=== PATIENT | female | born 1990 | race Hispanic/Latino ===

== ENCOUNTER 2022-10-16 12:30 | Observation (INO) | payer MEDICAID, OTHER ==
[~2022-10-16] VITALS: Ht 167.6 cm; Wt 83.9 kg
[2022-10-16 12:49] VITALS: BP 125/79
[2022-10-16 13:29] LABS: APPEARANCE,URINE CLEAR (CLEAR); BILIRUBIN,URINE NEGATIVE (NEGATIVE); COLOR,URINE LIGHT-YELLOW (YELLOW); GLUCOSE, URINE (UA) NEGATIVE (NEGATIVE); KETONES,URINE 40 mg/dL (NEGATIVE); LEUKOCYTE ESTERASE ,URINE NEGATIVE Leu/uL (NEGATIVE); NITRATE,URINE NEGATIVE (NEGATIVE); OCCULT BLOOD,URINE NEGATIVE (NEGATIVE); PROTEIN,URINE NEGATIVE (NEGATIVE); UROBILINOGEN,URINE 0.2 mg/dL (0.2-1.0)
[2022-10-16 13:30] LABS: AMPHET/METH SCREEN,URINE NEGATIVE (NEGATIVE); BARBITURATE SCREEN, URINE NEGATIVE (NEGATIVE); BENZODIAZEPINES SCREEN,URINE NEGATIVE (NEGATIVE); CANNABINOID SCREEN,URINE NEGATIVE (NEGATIVE); COCAINE SCREEN,URINE NEGATIVE (NEGATIVE); OPIATE SCREEN,URINE NEGATIVE (NEGATIVE); PHENCYCLIDINE SCREEN,URINE NEGATIVE (NEGATIVE)
[2022-10-16 13:41] LABS: BACTERIA,URINE FEW /HPF (None Seen); MUCUS,URINE RARE LPF (None Seen); RBC,URINE 0-1 /HPF (0-1); SQUAMOUS EPITHELIAL CELL,UR MOD /HPF (0-2); WBC,URINE 0-1 /HPF (0-1)
[2022-10-16] MEDS ORDERED: LACTATED RINGERS 1000ML 1,000 ML IV SCH (14:00)
== END 2022-10-16 15:05 | disposition home or self-care (01) ==
LOC: EDH 12:30 → LDH 12:31
PROVIDERS: ADMIT Obstetrics & Gynecology; ATTEND Obstetrics & Gynecology
DX: O26.893 Other specified pregnancy related conditions, third trimester (principal); R42 Dizziness and giddiness; G43.909 Migraine, unspecified, not intractable, without status migrainosus; R20.2 Paresthesia of skin; Z3A.31 31 weeks gestation of pregnancy; Z79.899 Other long term (current) drug therapy
CPT/HCPCS: 59025; 96360; 80305; 81003; 81001; G0378 ×2; G0379; J7120

== ENCOUNTER 2022-11-19 20:13 | Observation (INO) | payer MEDICAID ==
[~2022-11-19] VITALS: Ht 167.6 cm; Wt 86.2 kg
[2022-11-19 20:22] VITALS: BP 129/70
[2022-11-19 21:01] LABS: APPEARANCE,URINE CLEAR (CLEAR); BILIRUBIN,URINE NEGATIVE (NEGATIVE); COLOR,URINE COLORLESS (YELLOW); GLUCOSE, URINE (UA) NEGATIVE (NEGATIVE); KETONES,URINE 40 mg/dL (NEGATIVE); LEUKOCYTE ESTERASE ,URINE NEGATIVE Leu/uL (NEGATIVE); NITRATE,URINE NEGATIVE (NEGATIVE); OCCULT BLOOD,URINE NEGATIVE (NEGATIVE); PH,URINE 6.5 (5.0-8.0); PROTEIN,URINE NEGATIVE (NEGATIVE); UROBILINOGEN,URINE 0.2 mg/dL (0.2-1.0)
[2022-11-19] MEDS ORDERED: LACTATED RINGERS 1000ML IV SCH (21:30)
[2022-11-19] MEDS ORDERED: TERBUTALINE SULFATE VIAL 1MG/ML SQ PRN (21:30)
[2022-11-19] MEDS ORDERED: LACTATED RINGERS 1000ML 1,000 ML IV ONE (21:48)
[2022-11-19] MEDS ORDERED: LACTATED RINGERS 1000ML 1,000 ML IV SCH (22:30)
[2022-11-21] MEDS ORDERED: PREN-154 PO (00:09)
[2022-11-21] MEDS ORDERED: LEVO13CA4 PO (00:09)
[2022-11-21] MEDS ORDERED: IRON18TA PO (00:09)
== END 2022-11-20 00:20 | disposition home or self-care (01) ==
LOC: EDH 20:13 → LDH 20:14
PROVIDERS: ADMIT Obstetrics & Gynecology; ATTEND Obstetrics & Gynecology
DX: O62.9 Abnormality of forces of labor, unspecified (principal); O99.891 Other specified diseases and conditions complicating pregnancy; M54.50 Low back pain, unspecified; R10.30 Lower abdominal pain, unspecified; Z3A.36 36 weeks gestation of pregnancy
CPT/HCPCS: 59025; 96372; 96360; 96361; 81003; G0378 ×4; G0379; J7120 ×3; J3105

== ENCOUNTER 2024-07-03 14:20 | Emergency (ER) | payer MEDICAID, OTHER ==
[~2024-07-03] VITALS: Ht 167.6 cm; Wt 86.2 kg
[~2024-07-03 14:20] MED LIST: IRON18TA PO; LEVO13CA4 PO; PREN-154 PO
--- NOTE | 2024-07-03 14:59 | ERN ---
ED Note History of Present Illness Stated Complaint: ABDOMINAL PAIN Chief Complaint: Abdominal Pain Time Seen by MD: 14:22 Dictation: Patient is a 34-year-old female with past medical history of hypothyroidism Bhanu's thyroiditis, cancer of thyroid, left ovarian cyst rupture, ectopic came to the ED with a chief complaint of right-sided lower abdominal pain since this morning. Patient also complains of nausea, patient denies vomiting, constipation, diarrhea, headaches, shortness for breath, chest pain, vaginal discharge. Patient also complains of pelvic pain and pressure on the lower abdomen. Patient visited a [facility] in [place] before coming here, patient had labs and CT scan done at the [facility]. Abscess as follows WBCs 7.2, RBC 4.6, HGB 14, MCV 89.8, platelet count 263, neutrophil 60.9, lymphocyte 31.0, glucose 108, sodium 141, potassium 4.8, chloride 108, bicarb 25, calcium 9.7, BUN 11, creatinine 0.77, ALT 22, AST 17, bilirubin total 0.5, total protein 7.4, hCG qualitative negative, urinalysis negative for infection. CT scan report findings 1. 2 mm nonobstructing stone at the lower pole of the right kidney 2. Miniscule amount of fluid within the right lower abdomen near the right adnexa just anterior to the right ovary is, perhaps related to ruptured ovarian cyst. Otherwise, no evidence for any acute intra-abdominal or pelvic process, including no evidence for appendicitis, small-bowel obstruction, or pyelonephritis. Allergies: Coded Allergies: Penicillins (Unverified Allergy, Unknown, 10/16/22) ceftriaxone (Unverified Allergy, Unknown, 10/16/22) ibuprofen (Unverified Allergy, Unknown, 10/16/22) latex (Unverified Allergy, Unknown, 10/16/22) Home Meds Active Scripts Miconazole Nitrate (Monistat 3) 4 % (200 Mg)-2 % (9 Gram) Cmb.pf.crm, 1 RICHARD VG HS for 3 Days, #24 GM 0 Refills Prov:PARIS ALEXIS MD 07/03/24 Reported Medications Iron (Iron) 18 Mg Tablet, 18 MG PO DAILY, TAB 11/21/22 Vits #93/Iron Fum/FA ( Formula Tablet) 1 Each Tablet, 1 EACH PO DAILY, TAB 11/21/22 Levothyroxine Sodium (Levothyroxine) 13 Mcg Capsule, 13 MCG PO AM, CAP 11/21/22 Past Medical History Past Medical History: Asthma, Cancer, Other Additional Past Medical Hx: BHANU THYROID DISEASE Surgical History: Surgical History Other: FALLOPIAN TUBE REMOVAL LMP: Jun 13, 2024 : 3 Para: 1 Aborts: 1 Review of System Dictation Constitutional-no chills, weight loss/gain, fever Eyes-no injury, pain, redness and discharge ENT-no injury, pain, swelling Cardiovascular no chest pain, palpitations, edema Respiratory no shortness of breath, cough, wheezing Abdomen/GI-no diarrhea, constipation, vomiting. Patient has right lower quadrant abdominal pain and nausea Back no injury and pain Genitourinary no injury, bleeding and discharge Musculoskeletal/extremities no injury, deformity Skin no rash, discoloration Neuro-no headache, weakness, numbness, tingling, seizures, tremors Psych-no suicidal ideation, homicidal ideation, hallucinations, depression, anxiety, memory loss Initial Vital Sign VS Vital Signs Date Time Temp Pulse Resp B/P (MAP) Pulse Ox O2 Delivery O2 Flow Rate FiO2 07/03/24 14:21 98.2 100 20 116/80 99 0 07/03/24 17:13 Room Air* 21 Physical Exam Dictation General-patient is awake alert and oriented Head/neck-normocephalic, atraumatic Eyes-PERRL, EOMI, vision at baseline Neck-trachea midline, supple, no nuchal rigidity Cardiovascular-RRR, normal S1/S2, no MRG is, no JVD Respiratory-no distress, wheezing, rales, rhonchi Abdomen-no guarding, soft, nondistended . patient has tenderness on complete lower abdomen. Skin warm, dry, normal turgor, no rash Musculoskeletal/extremities pulses equal, no cyanosis Neuro-COA X 4, GCS 15, strength 5/5, CN 2-12 intact Psych-normal behavior, mood and affect normal Results (Laboratory/Radiology) Laboratory/Radiology Laboratory Tests Test 07/03/24 15:20 07/03/24 16:48 White Blood Count 7.6 K/uL (4.8-10.8) Red Blood Count 4.29 MIL/uL (4.00-5.50) Hemoglobin 12.9 g/dL (12.0-16.0) Hematocrit 38.2 % (36-48) Mean Corpuscular Volume 89.0 fL (79-99) Mean Corpuscular Hemoglobin 30.1 pg (27.0-33.0) Mean Corpuscular Hemoglobin Concent 33.8 g/dL (32.0-36.0) Red Cell Distribution Width 12.5 % (11.0-15.5) Platelet Count 254 K/uL (130-400) Mean Platelet Volume 10.2 fL (7.5-10.5) Immature Granulocyte % (Auto) 0.4 % (0-1) Neutrophils (%) (Auto) 57.4 % (40.0-77.0) Lymphocytes (%) (Auto) 28.7 % (21.0-51.0) Monocytes (%) (Auto) 8.3 % (3.0-13.0) Eosinophils (%) (Auto) 4.8 % (0.0-8.0) Basophils (%) (Auto) 0.4 % (0.0-5.0) Neutrophils # (Auto) 4.3 K/uL (1.8-7.7) Lymphocytes # (Auto) 2.2 K/uL (1.0-4.8) Monocytes # (Auto) 0.6 K/uL (0.1-1.0) Eosinophils # (Auto) 0.36 K/uL (0.00-0.70) Basophils # (Auto) 0.03 K/uL (0.00-0.20) Absolute Immature Granulocyte (auto 0.03 K/uL (0-1) Nucleated Red Blood Cells 0.0 % (0.0-0.19) Sodium Level 142 mmol/L (136-145) Potassium Level 3.8 mmol/L (3.5-5.1) Chloride Level 105 mmol/L (101-111) Carbon Dioxide Level 30 mmol/L (21-32) Blood Urea Nitrogen 6 mg/dL (7-18) L Creatinine 0.7 mg/dL (0.5-1.0) Glomerular Filtration Rate Calc 118 mL/min (>90) Random Glucose 86 mg/dL (70-105) Total Calcium 8.6 mg/dL (8.5-10.1) Urine Color LIGHT-YELLOW (YELLOW) Urine Appearance CLEAR (CLEAR) Urine pH 6.5 (5.0-8.0) Urine Specific [place] OVER (1.001-1.031) Urine Protein NEGATIVE mg/dL (NEGATIVE) Urine Glucose (UA) NEGATIVE mg/dL (NEGATIVE) Urine Ketones 10 mg/dL (NEGATIVE) H Urine Occult Blood NEGATIVE (NEGATIVE) Urine Nitrate NEGATIVE (NEGATIVE) Urine Bilirubin NEGATIVE mg/dL (NEGATIVE) Urine Urobilinogen 0.2 mg/dL (0.2-1.0) Urine Leukocyte Esterase NEGATIVE Chacha/uL Urine RBC 2-5 /HPF (0-1) H Urine WBC 0-1 /HPF (0-1) Urine Squamous Epithelial Cells FEW /HPF (0-2) Urine Bacteria RARE /HPF (None Seen) ED Course ED Course Orders Procedure Category Date Status Time Cbc With Differential LAB 07/03/24 Complete 15:00 Basic Metabolic Panel LAB 07/03/24 Complete 15:00 Urinalysis Profile LAB 07/03/24 Complete 15:00 Us Pelvic Non-Ob Comp US 07/03/24 Resulted 15:00 0.9%Nacl 1000ml (Ns PHA 07/03/24 Complete 1000ml) 16:00 Chlamydia & Gc Pcr TAMIKA 07/03/24 Complete 16:48 Current Medications Medications (Trade) Dose Ordered Sig/Manisha Route PRN Reason Start Time Stop Time Status Last Admin Dose Admin Sodium Chloride 1,000 ml @ 0 mls/hr ONCE ONCE IV 07/03/24 16:00 07/03/24 16:01 DC 07/03/24 16:54 Vital Signs Date Time Temp Pulse Resp B/P (MAP) Pulse Ox O2 Delivery O2 Flow Rate FiO2 07/03/24 17:13 97.9 78 16 115/75 97 Room Air* 0 21 07/03/24 14:21 98.2 100 20 116/80 99 0 Medical Decision Making MDM INITIAL IMPRESSION Initial history and physical concerning for ovarian cyst rupture, PID I have reviewed the triage nursing notes and vital signs. Initial plan: Laboratory evaluation and ultrasound DATA REVIEW I have reviewed additional NN, repeat VS, and monitoring where indicated. Heart rate, blood pressure, and O2 saturation are acceptable. . DISPOSITION Final diagnostic impression: Candidal Vaginitis I discussed my findings, clinical impression and treatment recommendations with the patient. -mild risk of complications and potential morbidity of the patient's condition. -Discussion with the patient regarding management options. Patient be discharged with antibiotic and symptomatic treatment Procedure Procedure Dictation: Pelvic exam is performed Patient seemed to have discharge and speculum exam is followed Whitish discharge observed at the the cervix DX & DISP Disposition: Discharge Departure Impression: Primary Impression: Candidal vaginitis Additional Impression: Pelvic inflammatory disease (PID) Condition: Stable Scripts Miconazole Nitrate (Monistat 3) 4 % (200 Mg)-2 % (9 Gram) Cmb.pf.crm 1 RICHARD VG HS for 3 Days, #24 GM 0 Refills Prov: PARIS ALEXIS MD 07/03/24 Referrals: ODETTE HUA Jr., MD (PCP) I have reviewed I have reviewed the case I WAS PRESENT AND PARTICIPATED IN THE CARE OF THIS PATIENT ALONGSIDE WITH THE RESIDENT PHYSICIAN. I HAVE REVIEWED AND PERSONALLY MADE AND APPROVED THE MANAGEMENT PLAN THAT IS DOCUMENTED IN THE NOTE BY MYSELF WITH THE RESIDENT PHYSICIAN. I ACKNOWLEDGED FOR RESPONSIBILITY FOR THE PATIENT'S MANAGEMENT PLAN. I have examined patient PARIS ALEXIS MD Jul 03, 2024 14:59 KRYSTIN MEDEL MD Jul 06, 2024 08:14
[2024-07-03 15:30] LABS: BASOPHILS # (AUTO) 0.03 K/uL (0.00-0.20); BASOPHILS % (AUTO) 0.4 % (0.0-5.0); EOSINOPHILS # (AUTO) 0.36 K/uL (0.00-0.70); EOSINOPHILS % (AUTO) 4.8 % (0.0-8.0); HEMATOCRIT 38.2 % (36-48); IMMATURE GRANULOCYTE ABSOLUTE 0.03 K/uL (0-1); LYMPHOCYTES # (AUTO) 2.2 K/uL (1.0-4.8); LYMPHOCYTES % (AUTO) 28.7 % (21.0-51.0); MEAN CORPUSCULAR HEMOGLOBIN 30.1 pg (27.0-33.0); MEAN CORPUSCULAR HGB CONC 33.8 g/dL (32.0-36.0); MONOCYTES # (AUTO) 0.6 K/uL (0.1-1.0); MONOCYTES % (AUTO) 8.3 % (3.0-13.0); NEUTROPHILS # (AUTO) 4.3 K/uL (1.8-7.7); NEUTROPHILS % (AUTO) 57.4 % (40.0-77.0); PLATELET COUNT (AUTO) 254 K/uL (130-400); RED BLOOD CELL COUNT(AUTO) 4.29 MIL/uL (4.00-5.50); RED CELL DISTRIBUTION WIDTH 12.5 % (11.0-15.5); WHITE BLOOD COUNT (AUTO) 7.6 K/uL (4.8-10.8)
[2024-07-03 15:41] LABS: CREATININE 0.7 mg/dL (0.5-1.0); POTASSIUM 3.8 mmol/L (3.5-5.1)
--- NOTE | 2024-07-03 15:57 | HMCIMG ---
US PELVIC NON-OB COMP HISTORY: Right lower abdominal pain COMPARISON: None TECHNIQUE: Transabdominal pelvic ultrasound study was performed. FINDINGS: The uterus measures 10.9 x 3.7 x 7.1 cm. The right ovary measures 3.2 x 1.9 x 2.9 cm. The left ovary measures 3 x 1.9 x 1.8 cm. Endometrial thickness is 6 mm+ No free fluid is seen in the cul-de-sac. IMPRESSION: 1. No adnexal mass is seen.
[2024-07-03] MEDS: 0.9%NACL 1000ML 1,000 ML IV ONE (16:54)
[2024-07-03 17:11] LABS: APPEARANCE,URINE CLEAR (CLEAR); BILIRUBIN,URINE NEGATIVE (NEGATIVE); COLOR,URINE LIGHT-YELLOW (YELLOW); GLUCOSE, URINE (UA) NEGATIVE (NEGATIVE); KETONES,URINE 10 mg/dL (NEGATIVE); LEUKOCYTE ESTERASE ,URINE NEGATIVE Leu/uL (NEGATIVE); NITRATE,URINE NEGATIVE (NEGATIVE); OCCULT BLOOD,URINE NEGATIVE (NEGATIVE); PH,URINE 6.5 (5.0-8.0); PROTEIN,URINE NEGATIVE (NEGATIVE); UROBILINOGEN,URINE 0.2 mg/dL (0.2-1.0)
[2024-07-03 17:13] VITALS: BP 115/75; PULSE 78; RESP 16; TEMP 97.8; O2SAT 97
[2024-07-03 17:13] LABS: ADD UA MICROSCOPIC YES
[2024-07-03 17:16] LABS: BACTERIA,URINE RARE /HPF (None Seen); SQUAMOUS EPITHELIAL CELL,UR FEW /HPF (0-2); WBC,URINE 0-1 /HPF (0-1)
[2024-07-03] MEDS ORDERED: MICO24CM2 VG (17:30)
== END 2024-07-03 17:54 | disposition home or self-care (01) ==
LOC: EDH 14:20
DX: B37.31 Acute candidiasis of vulva and vagina (principal); N73.9 Female pelvic inflammatory disease, unspecified; E06.3 Autoimmune thyroiditis; J45.909 Unspecified asthma, uncomplicated; Z88.0 Allergy status to penicillin; Z88.1 Allergy status to other antibiotic agents; Z88.6 Allergy status to analgesic agent; Z79.899 Other long term (current) drug therapy; Z98.890 Other specified postprocedural states
CPT/HCPCS: 99284; 96360; 76856; 80048; 85025; 87491; 87591; 81001; 36415; J7030